=== PATIENT | female | born 2000 | race Caucasian/White ===

== ENCOUNTER 2023-09-14 01:12 | Inpatient (IN) ==
[2023-09-14 02:54] LABS: Appearance Urine Clear (Clear); Bilirubin Urine Negative (Negative); Blood Urine Negative (Negative); Color Urine Yellow; Glucose Urine UA Negative (Negative); Ketones Urine Negative (Negative); Leukocyte Esterase Urine Negative (Negative); Nitrite Urine Negative (Negative); Protein Urine Negative (Negative); Specific Gravity Urine 1.005 (1.000-1.030); Urobilinogen Urine Negative (Negative)
[2023-09-14] MEDS ORDERED: SODIUM CHLORIDE 0.9% 1,000 ML IV ONE ×2 (03:34→07:23)
[2023-09-14 04:16] LABS: Hematocrit (blood only) 36.7 % (37.0-47.0); Hemoglobin 12.4 g/dl (12.0-16.0); Mean Corpuscular Hemoglobin 30.6 pg (25.0-34.0); Mean Corpuscular Hgb Conc 33.8 g/dL (32.0-36.0); Mean Corpuscular Volume 90.6 fL (80.0-100.0); Mean Platelet Volume 10.1 fL (9.4-12.4); Platelet Count 173 K/uL (130-400); RDW Coefficient of Variation 12.4 % (11.5-14.5); Red Blood Count 4.05 M/uL (4.20-5.40); White Blood Count 9.93 K/ul (4.8-10.8)
[2023-09-14 04:31] LABS: Alanine Aminotransferase 13 U/L (7-52); Albumin Globulin Ratio 1.6 (0.9-2); Albumin Level 4.2 gm/dl (3.4-5.0); Alkaline Phosphatase 41 U/L (34-104); Anion Gap 9 (3-11); Aspartate Aminotransferase 20 U/L (13-39); BUN Creatinine Ratio 18.2 (10-20); Bilirubin,Total 0.3 mg/dl (0.2-1.0); Blood Urea Nitrogen 10 mg/dl (6-23); Calcium 8.6 mg/dl (8.6-10.3); Carbon Dioxide 24 mmol/L (21-32); Chloride 109 mmol/L (98-107); Est GFR (African American) > 150.0 ml/min; Est GFR (Non-African American) 134.1 ml/min; Globulin 2.6 gm/dl (2.5-4.0); Glucose 89 mg/dl (70-99(Fasting)); Potassium 3.6 mmol/L (3.5-5.1); Sodium 142 mmol/L (136-145); Total Protein 6.8 gm/dl (6.0-8.3)
[2023-09-14 04:42] LABS: ALC (manual) 4.67 K/uL (1.2-3.4); ANC (manual) 5.16 K/uL (1.4-6.5); Lymphocytes # (manual) 3.38 K/uL (1.2-3.4); Lymphocytes % (manual) 34 %; Monocytes % (manual) 1 %; Neutrophils # (manual) 5.16 K/uL (1.40-6.50); Neutrophils % (manual) 52 %; Plasma Cells % (manual) 1 %; RBC Morphology Unremarkable; Reactive Lymphocytes # (manual) 1.19 K/uL; Reactive Lymphocytes % (manual) 12 %
[2023-09-14] MEDS ORDERED: OPTIRAY 320 100ml IV ONE (04:50)
--- NOTE | 2023-09-14 05:59 | Emergency Department Note ---
Impression & Plan Rupture of cyst of right ovary, Hemorrhagic ovarian cyst ED Provider Note CHIEF COMPLAINT: Pelvic pain HISTORY OF PRESENT ILLNESS: This 23-year-old patient with no significant past medical history presents to the emergency department with complaints of lower abdominal/pelvic pain after sexual intercourse tonight. The patient states there was only penile penetration. Patient is currently lying on the stretcher stating that she would just like to go to sleep. She does feel that the pain is severe, but has not received any pain medications. She does not believe that she is . She did have some bleeding. REVIEW OF SYSTEMS: A review of systems was performed with positives and pertinent negatives listed in the history of present illness. 10 systems were reviewed and are otherwise negative. ALLERGIES: see below MEDICATIONS: see below PMH: see below SOCIAL HISTORY: see below DDx: Ovarian cyst, ovarian torsion, vaginal laceration, trauma, ectopic , among others PHYSICAL EXAM: Vital signs reviewed. General: Well-appearing 23-year-old female, in no significant distress. HEENT: No scleral icterus, PERRLA, neck supple. Moist mucous membranes Cardiovascular: Regular rate and rhythm, no extra sounds. Pulmonary: Clear to auscultation bilaterally, normal work of breathing. Abdomen: Soft, tender to palpation and percussion to the right lower quadrant, n ondistended, positive bowel sounds. Musculoskeletal: Atraumatic, no peripheral edema. : Positive clear vaginal discharge (gel contraceptive?) No external genital lesions. No obvious blood. There is no clear laceration however there is significant cervical motion tenderness. Neurologic: Patient awake alert and oriented x 3 Skin: Warm, dry, no rash EMERGENCY DEPARTMENT COURSE/MDM: This patient was evaluated and appeared to be in no significant distress. The patient was asleep and needed to be awakened. Physical examination was consistent with some right lower quadrant tenderness and some guarding. The patient asked if she could "just go back to sleep" after my exam. CT imaging of the abdomen pelvis was performed. Laboratory work is fairly reassuring. CBC reveals a normal WBC and otherwise test is negative. CT imaging of the abdomen pelvis was performed and reveals a small amount of acute hemoperitoneum in the pelvic cul-de-sac with associated blood clot. There is a complex ovarian cyst in the right ovary of approximately 2.1 cm findings favor a ruptured hemorrhagic cyst however there is also mild thickening of the vaginal wall which contains fluid and a small foci of gas. A vaginal injury is difficult to exclude. Pelvic exam was performed and is significant for clear vaginal fluid versus discharge. Patient states she used Phexxi last evening as a contraceptive, which may explain the fluid. She does have significant cervical motion tenderness. Consultation with Dr. Mike of [facility] was placed and the patient was examined in the emergency department. MONITORING: An order for cardiac monitoring was placed and the patient is noted to be in a normal sinus rhythm at 82 beats per minute. RADIOLOGY: CT imaging of the abdomen pelvis to my review reveals an enlarged right ovary, possibly cystic structure, minimal free fluid in the pelvis. Otherwise defer to radiology's overread DISPOSITION: Home Past Med/Surg History Medical History (Updated 09/14/23 @ 07:42 by Evelia Lind MD) Patient denies allergy Social History Smoking Status: Current every day smoker Preferred Language: Tajik Feels Safe at Home: Yes Home Meds Previous Rx's Medication Instructions Recorded doxycycline hyclate 100 mg capsule 100 mg PO BID 14 days #28 caps 09/14/23 metronidazole 500 mg tablet 500 mg PO BID 14 days #28 tabs 09/14/23 ondansetron 4 mg disintegrating 4 mg PO Q6H PRN nausea and 09/14/23 tablet vomiting #14 tabs Results & Data (ED) Vital Signs Vital Signs - 24 hr 09/14/23 01:21 09/14/23 03:57 09/14/23 04:24 Temperature 36.3 C L Temperature Source Temporal Artery Scan Pulse Rate 104 H Pulse Rate [Finger] 82 82 Respiratory Rate 18 18 18 Respiratory Effort / Characteristics Non-Labored Spontaneous Non-Labored Spontaneous Non-Labored Spontaneous Respiratory Depth Normal Normal Normal Respiratory Pattern Regular Regular Blood Pressure 99/64 L Blood Pressure [Right Arm] 85/66 L 104/63 Blood Pressure Mean 75 Blood Pressure Mean [Right Arm] 72 76 Blood Pressure Position [Right Arm] Lying Lying Pulse Oximetry 99 100 100 Oxygen Delivery Method Room Air Room Air Room Air Sepsis Recent Fever Within 48 Hours No Sepsis New/Unexplained Change in Mental Status No Sepsis Action Taken by Nursing No Action Required 09/14/23 06:18 Temperature Temperature Source Pulse Rate Pulse Rate [Finger] 88 Respiratory Rate 16 Respiratory Effort / Characteristics Non-Labored Spontaneous Respiratory Depth Normal Respiratory Pattern Regular Blood Pressure Blood Pressure [Right Arm] 104/54 L Blood Pressure Mean Blood Pressure Mean [Right Arm] 70 Blood Pressure Position [Right Arm] Lying Pulse Oximetry 98 Oxygen Delivery Method Room Air Sepsis Recent Fever Within 48 Hours Sepsis New/Unexplained Change in Mental Status Sepsis Action Taken by [facility] Medications Current Medication List: was personally reviewed by me Laboratory Data Attestation: I reviewed the patient's lab results. 09/14/23 03:55 09/14/23 03:55 Lab Results 09/14/23 09/14/23 09/14/23 Range/Units 02:38 02:38 03:55 WBC 9.93 (4.8-10.8) K/ul RBC 4.05 L (4.20-5.40) M/uL Hgb 12.4 (12.0-16.0) g/dl Hct 36.7 L (37.0-47.0) % MCV 90.6 (80.0-100.0) fL MCH 30.6 (25.0-34.0) pg MCHC 33.8 (32.0-36.0) g/dL RDW Std Deviation 41.0 (36.4-46.3) fL RDW Coeff of Tomeka 12.4 (11.5-14.5) % Plt Count 173 (130-400) K/uL MPV 10.1 (9.4-12.4) fL Neutrophils % (Manual) 52 % Lymphocytes % (Manual) 34 % Reactive Lymphs % (Man) 12 % Monocytes % (Manual) 1 % Plasma Cell % (Manual) 1 % Neutrophils # (Manual) 5.16 (1.40-6.50) K/uL Total Absolute Neuts 5.16 (1.4-6.5) K/uL Lymphocytes # (Manual) 3.38 (1.2-3.4) K/uL Reactive Lymphs # 1.19 K/uL Total Abs Lymphocytes 4.67 H (1.2-3.4) K/uL Monocytes # (Manual) 0.10 L (0.11-0.59) K/uL Plasma Cell # (Manual) 0.10 H (0-0) K/uL RBC Morphology Unremarkable Sodium (136-145) mmol/L Potassium (3.5-5.1) mmol/L Chloride (98-107) mmol/L Carbon Dioxide (21-32) mmol/L Anion Gap (3-11) BUN (6-23) mg/dl Creatinine (0.6-1.2) mg/dl Est Cr Clr Drug Dosing Est GFR ( Amer) ml/min Est GFR (Non-Af Amer) ml/min BUN/Creatinine Ratio (10-20) Glucose (70-99(Fasting)) mg/dl Calcium (8.6-10.3) mg/dl Total Bilirubin (0.2-1.0) mg/dl AST (13-39) U/L ALT (7-52) U/L Alkaline Phosphatase (34-104) U/L Total Protein (6.0-8.3) gm/dl Albumin (3.4-5.0) gm/dl Globulin (2.5-4.0) gm/dl Albumin/Globulin Ratio (0.9-2) Urine Color Yellow Urine Appearance Clear (Clear) Urine pH 7.0 (4.5-7.5) Ur Specific [place] 1.005 (1.000-1.030) Urine Protein Negative (Negative) Urine Glucose (UA) Negative (Negative) Urine Ketones Negative (Negative) Urine Blood Negative (Negative) Urine Nitrite Negative (Negative) Urine Bilirubin Negative (Negative) Urine Urobilinogen Negative (Negative) Ur Leukocyte Esterase Negative (Negative) POC Ur Test NEG (NEG) 09/14/23 Range/Units 03:55 WBC (4.8-10.8) K/ul RBC (4.20-5.40) M/uL Hgb (12.0-16.0) g/dl Hct (37.0-47.0) % MCV (80.0-100.0) fL MCH (25.0-34.0) pg MCHC (32.0-36.0) g/dL RDW Std Deviation (36.4-46.3) fL RDW Coeff of Tomeka (11.5-14.5) % Plt Count (130-400) K/uL MPV (9.4-12.4) fL Neutrophils % (Manual) % Lymphocytes % (Manual) % Reactive Lymphs % (Man) % Monocytes % (Manual) % Plasma Cell % (Manual) % Neutrophils # (Manual) (1.40-6.50) K/uL Total Absolute Neuts (1.4-6.5) K/uL Lymphocytes # (Manual) (1.2-3.4) K/uL Reactive Lymphs # K/uL Total Abs Lymphocytes (1.2-3.4) K/uL Monocytes # (Manual) (0.11-0.59) K/uL Plasma Cell # (Manual) (0-0) K/uL RBC Morphology Sodium 142 (136-145) mmol/L Potassium 3.6 (3.5-5.1) mmol/L Chloride 109 H (98-107) mmol/L Carbon Dioxide 24 (21-32) mmol/L Anion Gap 9 (3-11) BUN 10 (6-23) mg/dl Creatinine 0.55 L (0.6-1.2) mg/dl Est Cr Clr Drug Dosing Not Reportable Est GFR ( Amer) > 150.0 ml/min Est GFR (Non-Af Amer) 134.1 ml/min BUN/Creatinine Ratio 18.2 (10-20) Glucose 89 (70-99(Fasting)) mg/dl Calcium 8.6 (8.6-10.3) mg/dl Total Bilirubin 0.3 (0.2-1.0) mg/dl AST 20 (13-39) U/L ALT 13 (7-52) U/L Alkaline Phosphatase 41 (34-104) U/L Total Protein 6.8 (6.0-8.3) gm/dl Albumin 4.2 (3.4-5.0) gm/dl Globulin 2.6 (2.5-4.0) gm/dl Albumin/Globulin Ratio 1.6 (0.9-2) Urine Color Urine Appearance (Clear) Urine pH (4.5-7.5) Ur Specific [place] (1.000-1.030) Urine Protein (Negative) Urine Glucose (UA) (Negative) Urine Ketones (Negative) Urine Blood (Negative) Urine Nitrite (Negative) Urine Bilirubin (Negative) Urine Urobilinogen (Negative) Ur Leukocyte Esterase (Negative) POC Ur Test (NEG) Administered Medications Sodium Chloride (Nss) 1,000 mls @ 999 mls/hr IV .Q1H1M ONE Stop: 09/14/23 08:23 Last Admin: 09/14/23 07:36 Dose: 999 mls/hr Documented By: GAIL Discontinued Medications Sodium Chloride (Nss) 1,000 mls @ 999 mls/hr IV .Q1H1M ONE Stop: 09/14/23 04:34 Last Infusion: 09/14/23 04:56 Dose: 0 mls/hr Documented By: Admin: 09/14/23 03:55 Dose: 999 mls/hr Documented By: CLINT Ioversol (Optiray 320 100ml) 100 ml IV ONCE ONE Stop: 09/14/23 04:51 Last Admin: 09/14/23 04:50 Dose: 92 ml Documented By: EVERTON Morphine Sulfate (Morphine Sulfate 2 Mg/Ml Carp) 2 mg IV NOW STA Stop: 09/14/23 07:25 Last Admin: 09/14/23 07:35 Dose: 2 mg Documented By: GAIL Ondansetron HCl (Ondansetron Inj 2 Mg/Ml 2 Ml Vial) 4 mg IV NOW STA Stop: 09/14/23 07:20 Last Admin: 09/14/23 07:35 Dose: 4 mg Documented By: GAIL Imaging Data Radiologist's Impression: Abdomen/Pelvis CT 09/14/23 03:[address] WITH IV CONTRAST CT DOSE: 405.83 mGy.cm HISTORY: RLQ pain after vaginal intercourse TECHNIQUE: Multiaxial CT images of the abdomen and pelvis were performed following the use of intravenous contrast. A dose lowering technique was utilized adhering to the principles of ALARA. COMPARISON STUDY: None. FINDINGS: The lung bases are clear. No pneumoperitoneum. No pneumatosis. No acute fractures identified. The liver, gallbladder, spleen, adrenal glands, pancreas, and kidneys are unremarkable. No hydronephrosis. The main portal vein is patent. No retroperitoneal lymphadenopathy or retroperitoneal hematoma. Normal caliber abdominal aorta. Trace fluid along the undersurface of the spleen. No pelvic lymphadenopathy. Normal bladder. Mild thickening of the vaginal wall with trace fluid and gas within the vagina. No bowel wall thickening or obstruction. The visualized appendix is unremarkable measuring up to 4 mm in diameter. The uterus and left ovary are unremarkable. There is a complex right ovarian cyst measuring up to 2.1 cm. There is additional 1.4 cm indeterminate cystic focus within the right lower quadrant abutting the uterine fundus best seen on image 254. Small amount of hemoperitoneum within the pelvic cul-de-sac with associated blood clot. IMPRESSION: 1. Normal appendix. 2. Small amount of hemoperitoneum within the pelvic cul-de-sac with associated blood clot. There is a complex cyst within the right ovary measuring 2.1 cm. Therefore, these findings favor a recently ruptured hemorrhagic cyst. There is also mild thickening of the vaginal wall which contains fluid and a small foci of gas. Therefore, a vaginal injury would be difficult to exclude on this study. 3. An indeterminate 1.4 cm cyst within the right adnexa. Follow-up pelvic ultrasound in 6-8 weeks be performed to ensure resolution of this indeterminate cyst. 4. No bowel wall thickening or obstruction. 5. Trace fluid along the undersurface of the spleen is likely related to the pelvic fluid. ACT 112: Negative or not required by law. Electronically signed by: Kristian Concepcion M.D. 09/14/2023 6:48 AM Discharge Plan Visit Data Chief Complaint: Abdominal Pain Stated Complaint: ABD PAIN ED Provider: Evelia Lind Discharge Problem: Rupture of cyst of right ovary, Hemorrhagic ovarian cyst Patient Disposition: Home - Self-Care Condition: Good Discharge Instructions Activity Restrictions/Additional Instructions: Flagyl 500 mg twice daily x14 days. Do not drink any alcohol while you are on this medication. Do not drink alcohol within 24 hours of taking this medication. Doxycycline 100 mg twice daily x14 days. Zofran 4 mg ODT every 6 hours as needed for nausea and vomiting. Drink plenty of clear fluids. Ibuprofen 600 mg every 6 hours as needed for pain with food. Follow-up with gynecology as directed. Please see contact information below. Forms Stand Alone Forms: [facility] Emergency Department, Important Visit Information Prescriptions Prescriptions: New metronidazole 500 mg tablet 500 mg PO BID 14 Days Qty: 28 0RF doxycycline hyclate 100 mg capsule 100 mg PO BID 14 Days Qty: 28 0RF ondansetron 4 mg tablet,disintegrating 4 mg PO Q6H PRN (Reason: nausea and vomiting) Qty: 14 0RF Referrals Referrals: Seble Mike MD [Physician] - [place] [Primary Care Provider] -
--- NOTE | 2023-09-14 06:51 | CT Scan Report ---
ABDOMEN AND PELVIS CT WITH IV CONTRAST CT DOSE: 405.83 mGy.cm HISTORY: RLQ pain after vaginal intercourse TECHNIQUE: Multiaxial CT images of the abdomen and pelvis were performed following the use of intrave nous contrast. A dose lowering technique was utilized adhering to the principles of ALARA. COMPARISON STUDY: None. FINDINGS: The lung bases are clear. No pneumoperitoneum. No pneumatosis. No acute fractures identifie d. The liver, gallbladder, spleen, adrenal glands, pancreas, and kidneys are unremarkable. No hydrone phrosis. The main portal vein is patent. No retroperitoneal lymphadenopathy or retroperitoneal hemato ma. Normal caliber abdominal aorta. Trace fluid along the undersurface of the spleen. No pelvic lymph adenopathy. Normal bladder. Mild thickening of the vaginal wall with trace fluid and gas within the v agina. No bowel wall thickening or obstruction. The visualized appendix is unremarkable measuring up to 4 mm in diameter. The uterus and left ovary are unremarkable. There is a complex right ovarian cys t measuring up to 2.1 cm. There is additional 1.4 cm indeterminate cystic focus within the right lowe r quadrant abutting the uterine fundus best seen on image 254. Small amount of hemoperitoneum within the pelvic cul-de-sac with associated blood clot. IMPRESSION: 1. Normal appendix. 2. Small amount of hemoperitoneum within the pelvic cul-de-sac with associated blood clot. There is a complex cyst within the right ovary measuring 2.1 cm. Therefore, these findings favor a recently rup tured hemorrhagic cyst. There is also mild thickening of the vaginal wall which contains fluid and a small foci of gas. Therefore, a vaginal injury would be difficult to exclude on this study. 3. An indeterminate 1.4 cm cyst within the right adnexa. Follow-up pelvic ultrasound in 6-8 weeks be performed to ensure resolution of this indeterminate cyst. 4. No bowel wall thickening or obstruction. 5. Trace fluid along the undersurface of the spleen is likely related to the pelvic fluid. ACT 112: Negative or not required by law. Electronically signed by: Kristian Concepcion M.D. 09/14/2023 6:48 AM
[2023-09-14] MEDS ORDERED: ONDANSETRON INJ 2 MG/ML 2 ML VIAL IV STA (07:19)
[2023-09-14] MEDS ORDERED: metroNIDAZOLE 500 MG/100 ML BAG IV STA (07:19)
[2023-09-14] MEDS ORDERED: cefTRIAXone SODIUM 500 MG in DEXTROSE 5% 50 ML IV STA (07:19)
[2023-09-14] MEDS ORDERED: DOXYCYCLINE HYCLATE 100 MG in DEXTROSE 5% MINI-B 100 ML IV STA (07:23)
[2023-09-14] MEDS: MoRPHine SULFATE 2 MG/ML CARP IV STA ×2 (07:35→07:48)
[2023-09-14] MEDS ORDERED: ONDANSETRON INJ 2 MG/ML 2 ML VIAL IV PRN (07:53)
--- NOTE | 2023-09-14 08:04 | History & Physical Report ---
Date of Service September 14, 2023 Assessment & Plan (1) Pelvic inflammatory disease (PID): Plan: 23yo female with acute onset of pelvic pain during penetrative intercourse. She has peritoneal pain and cervical motion tenderness, findings of small amounts of complex fluid in the pelvis and near spleen while lying down, and high risk sexual behavior. While her WBC are normal at 9 there is left shift. I was concerned for vaginal laceration, especially given the small focus of gas seen on CT scan at the vaginal wall, however I am unable to identify any blood in the vagina nor any wound in or near the vagina. There is also a question of ruptured ovarian cyst, but I cannot attribute her level of peritoneal signs on exam to the small cyst and small volume of possible blood in the belly found on imaging. I have explained to the patient that my working diagnosis at this time is PID and we will admit her for broad spectrum antibiotics and observation. If her condition does not improve as expected, further measures may be required. An alcohol level has been ordered by the ED to determine her level of intoxication and guide pain management needs, which may increase as she zoraida up, but also we do not want to oversedate her. I do not see an indication for surgery in the immediate timeframe so have ordered a diet, however the possibility of dx laparoscopy is present if the patient's condition does not improve, and this will be discussed with the oncoming physician. If she does demonstrate improvement, completion of therapy as an outpatient is possible. Counseling on the importance of better protection against and safer sexual practices was performed but will likely need to be repeated when the patient is more cognitively intact. History of Present Illness Primary Care Provider: [facility] 23yo G0 senior at [employer] presents to ER with pain during intercourse last evening. The patient was drinking heavily last night (cannot quantify but drank "a LOT a lot" of alcohol) and vaping nicotine, but denies use of other substances. She was with one of her multiple current male sexual partners, and began having sexual intercourse with penile-vaginal penetration. This sex was a planned event, and she uses Phexxi for contraception with this partner, but not condoms or any other form of protection, so she had placed the vaginal contraceptive gel within an hour prior to intercourse. Immediately after penetration she began to experience severe pain deep in her abdomen, suprapubic and midline. She continued for a brief period of time hoping the pain would ease, but as it only worsened, she asked the partner to stop. He did not ejaculate in the vagina, and she denies seeing any bleeding. Because the pain was so severe she was brought to the ER by her roommates, who wrote their phone number on her hospital wristband as the patient was so intoxicated they did not expect her to remember how to reach them. She states she has previously had one pelvic exam in her freshman year of college, but none others until the exam done by the ER physician this evening. She is frightened of the exam. She also has been very sleepy here in the ER based on notes I see from ER physician, though now seems more awake, and has evidently been crying as there is heavy eye makeup smeared below each eye. Home Medications Medication Instructions Recorded Confirmed Type doxycycline hyclate 100 mg capsule 100 mg PO BID 14 days #28 caps 09/14/23 Rx metronidazole 500 mg tablet 500 mg PO BID 14 days #28 tabs 09/14/23 Rx ondansetron 4 mg disintegrating 4 mg PO Q6H PRN nausea and 09/14/23 Rx tablet vomiting #14 tabs Patient History Medical History Patient denies allergy Social History Smoking Status: Current every day smoker Preferred Language: Icelandic Feels Safe at Home: Yes Physical Exam Constitutional: WD/WN, vitals as above Eyes: PERRL, conjunctivae normal, anicteric sclerae ENMT: external ear and nose normal, oropharynx normal Neck: supple Respiratory: normal respiratory effort and able to speak in complete sentences; no respiratory distress Cardiovascular: Rate/Rhythm: regular rate and regular rhythm Gastrointestinal (Abdomen): Tender diffusely, with +rebound in bilateral lower quadrants. Musculoskeletal: no cyanosis or clubbing, extremities motor strength 5/5 Skin: no rashes, warm and dry Psychiatric: Intoxicated, awake and responsive / answers questions appropriately but emotionally labile. Genitourinary: Speculum/Bimanual Exam: no vaginal lesions and no vaginal bleeding 1mg IV morphine administered a few minutes prior to exam along with IV zofran, as ordered by ER doctor. (Dose ordered was actually 2mg but I asked to hold at 1mg and see her response given unclear level of alcohol intoxication.) External genitalia normal, hair removal evident, no lesions seen, no bleeding or wounds identified. Lighted speculum exam: vaginal vault carefully examined 360 degrees from hymenal ring to fornices around cervix. No wound identified. No bleeding evident; leukorrhea is white to creamy and malodorous, but not with any evidence of fresh or old blood. Cervical os with purulent to mucoid discharge and punctate hemorrhages within the TZ right around the os, unclear if r/t two speculum exams this evening / recent intercourse / infectious etiology. Patient tolerates exam well until there is pressure applied to the posterior fornix, which is exquisitely painful for her. Bimanual exam: No palpable defect in the vaginal hopper anywhere. No significant pain until posterior fornix is palpated, and then even worse pain with elevation of the cervix, which causes the patient to scream and cry. Exam was immediately discontinued but +CMT clearly. Lymphatic: No inguinal lymphadenopathy but patient diffusely tender limiting my ability to press deeply Results & Data Vital Signs (Past 12 Hours) Vital Signs Temp Pulse Pulse Resp BP BP Pulse Ox 09/14/23 06:18 88 16 104/54 L 98 09/14/23 04:24 82 18 104/63 100 09/14/23 03:57 82 18 85/66 L 100 09/14/23 01:21 97.3 F L 104 H 18 99/64 L 99 O2 Del Method 09/14/23 06:18 Room Air 09/14/23 04:24 Room Air 09/14/23 03:57 Room Air 09/14/23 01:21 Room Air Coding Level of Care Code 09067 INT INP/OBS CARE /75MIN Diagnoses Pelvic inflammatory disease (PID) N73.9
[2023-09-14] MEDS ORDERED: Patient's ALLERGY Info needs ENTERED SCH (08:15)
[2023-09-14] MEDS: LACTATED RINGER'S 1,000 ML IV SCH ×2 (11:18→19:52)
[2023-09-14] MEDS: IBUPROFEN 600 MG TAB PO SCH ×3 (13:32→20:36)
[2023-09-14 14:19] LABS: Hematocrit (blood only) 33.1 % (37.0-47.0); Hemoglobin 11.4 g/dl (12.0-16.0); Mean Corpuscular Hemoglobin 30.5 pg (25.0-34.0); Mean Corpuscular Hgb Conc 34.4 g/dL (32.0-36.0); Mean Corpuscular Volume 88.5 fL (80.0-100.0); Mean Platelet Volume 10.5 fL (9.4-12.4); Platelet Count 149 K/uL (130-400); RDW Coefficient of Variation 12.6 % (11.5-14.5); RDW Standard Deviation 40.7 fL (36.4-46.3); Red Blood Count 3.74 M/uL (4.20-5.40); White Blood Count 9.97 K/ul (4.8-10.8)
[2023-09-14 14:46] LABS: Basophils # (auto) 0.04 K/uL (0.00-0.20); Basophils % (auto) 0.4 %; Immature Granulocytes # (auto) 0.02 K/uL (0.01-0.20); Immature Granulocytes % (auto) 0.2 %; Lymphocytes # (auto) 3.99 K/uL (1.20-3.40); Monocytes # (auto) 0.68 K/uL (0.11-0.59); Monocytes % (auto) 6.8 %; Neutrophils # (auto) 5.24 K/uL (1.40-6.50); Neutrophils % (auto) 52.6 %
[2023-09-14] MEDS: metroNIDAZOLE 500 MG TAB PO SCH (20:35)
[2023-09-14] MEDS: DOXYCYCLINE HYCLATE 100 MG CAP PO SCH (20:36)
[2023-09-15] MEDS: IBUPROFEN 600 MG TAB PO SCH ×2 (02:05→08:50)
[2023-09-15] MEDS: LACTATED RINGER'S 1,000 ML IV SCH (03:57)
--- NOTE | 2023-09-15 07:33 | Gynecologic Progress Note ---
Date of Service September 15, 2023 Assessment & Plan (1) Pelvic inflammatory disease (PID): Plan: Reviewed that this is possibly pelvic inflammatory disease although I am uncertain at this time as it was a diagnosis on his back her pain is improved on antibiotics will continue oral antibiotics she is advised to follow-up in the office in 1 week reviewed the antibiotics side effects discussed if her pain returns to come come back to the hospital Admission and Anticipated Discharge Date Admission Date: September 14, 2023 Subjective Patient admitted yesterday morning by Dr. Mike for possible vaginal tear and possible pelvic inflammatory disease she was started on IV antibiotics during the course the day she improved dramatically she has had no temperature elevations her vitals are normal her pain is minimal she has no vaginal vaginal bleeding and no rectal bleeding and no hematuria she wishes to go home Results & Data Vital Signs (Past 12 Hours) Vital Signs Temp Pulse Resp BP BP Pulse Ox O2 Del Method 09/15/23 03:06 98.2 F 61 18 107/69 98 Room Air 09/14/23 22:48 98.4 F 60 18 106/64 98 Room Air 09/14/23 19:47 98.6 F 58 L 16 112/65 98 Room Air PG Care Time/CCT Total # of Minutes Spent Total Time Spent with Patient: Total time spent is greater than 50% in coordination of care (as documented) at patient's floor/unit and/or counseling patient: Critical Care Time 30 Coding Level of Care Code 32984 SUB INP/OBS CARE 2/35MIN Diagnoses Pelvic inflammatory disease (PID) N73.9
[2023-09-15] MEDS: metroNIDAZOLE 500 MG TAB PO SCH (08:49)
[2023-09-15] MEDS: DOXYCYCLINE HYCLATE 100 MG CAP PO SCH (08:49)
[2023-09-15 10:24] LABS: HBSAG NON-REACTIVE (NON-REACTIVE)
[2023-09-15 12:41] LABS: Chlam trach RNA(Genit,Ureth,Ur Not Detected (NotDetected); GC(Neis gon)RNA(Genit,Ureth,Ur Not Detected (NotDetected)
[2023-09-15 15:11] LABS: Trichomonas vag RNA GenitalFem Not Detected (NotDetected)
== END 2023-09-15 10:01 | disposition home or self-care (01) | DRG 759 ==
LOC: ED 01:12 → 4E1 07:53